=== PATIENT | female | born 1955 | race Caucasian/White ===

== ENCOUNTER 2018-01-16 10:42 | Emergency (ER) | payer OTHER ==
[2018-01-16 11:39] LABS: ADD MAN DIFF? NO
[2018-01-16 11:41] LABS: BASOPHILS % 0.4 % (0.0-2.0); HEMATOCRIT 42.3 % (37.0-47.0); HEMOGLOBIN 13.9 g/dl (12.0-16.0); LYMPHOCYTES # 1.8 10^3/ul (0.8-2.9); LYMPHOCYTES % 24.8 % (15.0-51.0); MEAN CORPUSCULAR HEMOGLOBIN 29.8 pg (29.0-33.0); MEAN CORPUSCULAR HGB CONC 32.9 g/dl (32.0-37.0); MEAN CORPUSCULAR VOLUME 90.8 fl (82.0-101.0); MEAN PLATELET VOLUME 10.9 fl (7.4-10.4); MONOCYTE # 0.5 10^3/ul (0.3-0.9); MONOCYTES % 7.2 % (0.0-11.0); NEUTROPHILS % 67.3 % (39.0-77.0); PLATELET COUNT 259 10^3/UL (140-415); RED BLOOD COUNT 4.66 10^6/ul (4.20-5.40)
[2018-01-16 11:41] LABS: WHITE BLOOD COUNT 7.4 10^3/ul (4.8-10.8)
[2018-01-16 11:53] LABS: ADD UMIC YES; UR ASCORBIC ACID NEGATIVE (NEGATIVE); UR BILIRUBIN (Dip) NEGATIVE (NEGATIVE); UR BLOOD (Dip) 2+ mg/dL (NEGATIVE); UR CLARITY CLEAR (CLEAR); UR COLOR STRAW (YELLOW); UR GLUCOSE (Dip) NEGATIVE (NEGATIVE); UR KETONES (Dip) NEGATIVE (NEGATIVE); UR LEUKOCYTE ESTERASE (Dip) NEGATIVE Leu/ul (NEGATIVE); UR NITRITE (Dip) NEGATIVE (NEGATIVE); UR RBC 1 /HPF (0-5); UR SPECIFIC GRAVITY (Dip) 1.002 (1.003-1.030); UR TOTAL PROTEIN (Dip) NEGATIVE (NEGATIVE); UR UROBILINOGEN (Dip) NEGATIVE (NEGATIVE); UR WBC 0 /HPF (0-5)
[2018-01-16 12:01] LABS: INR 1.01; PROTIME 13.4 Sec (11.9-14.9)
[2018-01-16 12:02] LABS: PARTIAL THROMBOPLASTIN TIME 28.4 Sec (25.0-35.0)
[2018-01-16 12:17] LABS: ALANINE AMINOTRANSFERASE 26 IU/L (13-69); ALBUMIN 4.5 g/dl (3.3-4.9); ALKALINE PHOSPHATASE 52 IU/L (42-121); ANION GAP 13 (8-16); ASPARTATE AMINO TRANSFERASE 29 IU/L (15-46); BILIRUBIN,INDIRECT 0.6 mg/dl (0-1.1); BILIRUBIN,TOTAL 0.6 mg/dl (0.2-1.3); BLOOD UREA NITROGEN 15 mg/dl (7-20); CALCIUM 9.5 mg/dl (8.4-10.2); CARBON DIOXIDE 28 mmol/L (21-31); CHLORIDE 105 mmol/L (97-110); CREATININE 0.72 mg/dl (0.44-1.00); GLUCOSE 90 mg/dl (70-220); POTASSIUM 4.1 mmol/L (3.5-5.1); SODIUM 142 mmol/L (135-144); TOTAL PROTEIN 7.5 g/dl (6.1-8.1)
[2018-01-16 12:28] LABS: TROPONIN-I < 0.010 ng/ml (0.000-0.120)
== END 2018-01-16 14:00 | disposition home or self-care (01) ==
LOC: FTE 10:42
DX: R42 Dizziness and giddiness (principal); R07.9 Chest pain, unspecified; I10 Essential (primary) hypertension
CPT/HCPCS: 36415; 70450; 71045; 80053; 81001; 84484; 85025; 85610; 85730; 93005; 99285-25